=== PATIENT | female | born 1990 | race Caucasian/White ===

== ENCOUNTER 2016-10-20 03:35 | Emergency (ER) | payer OTHER ==
[~2016-10-20] VITALS: Ht 162.6 cm; Wt 53.5 kg
[~2016-10-20 03:35] MED LIST: ATIVAN1 MG PO; NORCO 325 MG-51 TAB PO; PRENATAL1 TA1 PO; PROAIR HFA0.09 MG/Ac IH; XANAX1 MG PO; [UNRECOGNIZED DRUG - REMARK]
[2016-10-20 03:46] VITALS: BP 122/73
--- NOTE | 2016-10-20 03:51 | NUR ---
TO ER BED 2
--- NOTE | 2016-10-20 03:55 | NUR ---
COUGHING X 5 DAYS, DENIES N/V/D/. PT STATES SHE THREW UP YELLOW PHELGM. PT ALSO STATES HER CHEST HURTS DUE TO COUGH 02/20 HX: ASTHMA, NKA
--- NOTE | 2016-10-20 04:06 | NUR ---
Patient being evaluated by physician at bedside.
[2016-10-20] MEDS ORDERED: ACETAMINOPHEN EXTRA STRENGTH 500 MG TAB PO ONE (04:10)
[2016-10-20 04:41] VITALS: BP 120/74
--- NOTE | 2016-10-20 04:42 | NUR ---
Patient discharged with v/s stable. Written and verbal after care instructions given and explained. Patient alert, oriented and verbalized understanding of instructions. Ambulatory with steady gait. All questions addressed prior to discharge. ID band removed. Patient advised to follow up with PMD. Rx of MOTRIN 800MG, AMOX 500MG, PHENERGAN DM given. Patient educated on indication of medication including possible reaction and side effects. Opportunity to ask questions provided and answered.
== END 2016-10-20 04:41 | disposition home or self-care (01) ==
LOC: MED 03:35
DX: J20.9 Acute bronchitis, unspecified (principal); J45.909 Unspecified asthma, uncomplicated; R03.0 Elevated blood-pressure reading, without diagnosis of hypertension

== ENCOUNTER 2016-10-22 05:42 | Emergency (ER) | payer OTHER ==
--- NOTE | 2016-10-22 05:45 | NUR ---
PATIENT LEFT WITHOUT BEING SEEN BY DR. ENGLAND. NO FURTHER CARE PROVIDED FOR PATIENT.
== END 2016-10-22 05:45 | disposition left against medical advice (07) ==
LOC: MED 05:42
DX: R51 Headache (principal); Z53.21 Procedure and treatment not carried out due to patient leaving prior to being seen by health care provider

== ENCOUNTER 2018-01-24 23:54 | Emergency (ER) | payer OTHER ==
[~2018-01-24] VITALS: Ht 154.9 cm; Wt 54.0 kg
[~2018-01-24 23:54] MED LIST changes: +ALBU-136 IH; -ATIVAN1 MG PO; +LORA-476 PO; -NORCO 325 MG-51 TAB PO; -PRENATAL1 TA1 PO; -PROAIR HFA0.09 MG/Ac IH; -XANAX1 MG PO; -[UNRECOGNIZED DRUG - REMARK]
[2018-01-24 23:55] VITALS: BP 110/62
[2018-01-25] VITALS: BP 110/62
== END 2018-01-25 00:26 | disposition left against medical advice (07) ==
LOC: MED 23:54
DX: R07.9 Chest pain, unspecified (principal); R42 Dizziness and giddiness; Z53.21 Procedure and treatment not carried out due to patient leaving prior to being seen by health care provider
CPT/HCPCS: 93005; 99281; 99283

== ENCOUNTER 2018-05-03 00:33 | Emergency (ER) | payer SELFPAY ==
--- NOTE | 2018-05-03 00:40 | NUR ---
PATIENT CALLED TO [facility] NO RESPONSE PATIENT LEFT WITHOUT BEING SEEN BY DR. CRUZ. NO FURTHER CARE PROVIDED FOR PATIENT.
== END 2018-05-03 00:40 | disposition left against medical advice (07) ==
LOC: MED 00:33
DX: Z53.21 Procedure and treatment not carried out due to patient leaving prior to being seen by health care provider (principal)

== ENCOUNTER 2018-05-04 04:40 | Emergency (ER) | payer OTHER ==
[~2018-05-04] VITALS: Ht 152.4 cm; Wt 49.6 kg
[2018-05-04 04:51] VITALS: BP 111/68
--- NOTE | 2018-05-04 04:51 | NUR ---
TO BED #9 [facility], REPORT GIVEN TO HERB RASHEED.
--- NOTE | 2018-05-04 04:59 | NUR ---
PATIENT IS A 27 Y/O FEMALE WHO PRESENTS TO THE ED C/O HEADACHE. PT STATES THAT IT HAS BEEN GOING ON X6 DAYS. PT REPORTS 6/10 ACHING HEADACHE PAIN THAT DOES NOT RADIATE. PT DENIES CP, SOB, N/V/D. PT AWAKE AND ALERT, RR EVEN/UNLABORED. PT REPOSITIONED FOR COMFORT, BED IN LOWEST POSITION. ER MD DR. AGUIRRE NOTIFIED. WILL CONTINUE TO MONITOR.
[2018-05-04] MEDS ORDERED: KETOROLAC 60 MG/2 ML VIAL IM ONE ×2 (05:05→05:11)
[2018-05-04 05:39] VITALS: BP 118/72
--- NOTE | 2018-05-04 05:39 | NUR ---
Patient discharged with v/s stable. Written and verbal after care instructions given and explained. Patient alert, oriented and verbalized understanding of instructions. Ambulatory with steady gait. All questions addressed prior to discharge. ID band removed. Patient advised to follow up with PMD. Rx of MOTRIN 600MG given. Patient educated on indication of medication including possible reaction and side effects. Opportunity to ask questions provided and answered.
== END 2018-05-04 05:39 | disposition home or self-care (01) ==
LOC: MED 04:40
DX: R51 Headache (principal); M54.2 Cervicalgia; J45.909 Unspecified asthma, uncomplicated; F12.10 Cannabis abuse, uncomplicated; Z79.899 Other long term (current) drug therapy; Z90.49 Acquired absence of other specified parts of digestive tract
CPT/HCPCS: 81002; 81025; 96372; 99283; J1885

== ENCOUNTER 2018-12-25 15:48 | Observation (INO) | payer OTHER ==
[~2018-12-25] VITALS: Ht 160 cm; Wt 64.4 kg
[2018-12-25 15:50] VITALS: BP 111/69
--- NOTE | 2018-12-25 15:55 | NUR ---
PT TO L&D WITH RN VIA WHEELCHAIR PER DR. JUSTICE.
[2018-12-25] MEDS ORDERED: TERBUTALINE 1 MG/ML VIAL SUBQ SCH (17:05)
[2018-12-25] MEDS ORDERED: PREN-380 PO (17:14)
[2018-12-25 17:15] VITALS: BP 111/69
[2018-12-25] MEDS ORDERED: TERBUTALINE 1 MG/ML VIAL SUBQ ONE (17:49)
== END 2018-12-25 19:10 | disposition home or self-care (01) ==
LOC: MED 15:48 → MLD 15:55 → UNDOADMOB 16:41
PROVIDERS: ADMIT Obstetrics & Gynecology; ATTEND Obstetrics & Gynecology
DX: O26.893 Other specified pregnancy related conditions, third trimester (principal); R10.30 Lower abdominal pain, unspecified; R06.02 Shortness of breath; Z3A.33 33 weeks gestation of pregnancy
CPT/HCPCS: 81000; 96372; 99281; G0378; J3105

== ENCOUNTER 2019-01-02 19:14 | Observation (INO) | payer OTHER ==
[~2019-01-02] VITALS: Ht 152.4 cm; Wt 65.8 kg
[~2019-01-02 19:14] MED LIST changes: +PREN-380 PO
[2019-01-02 19:27] VITALS: BP 110/64
--- NOTE | 2019-01-02 19:34 | NUR ---
PT TRIAGED IN ER AND TAKEN TO L&D
[2019-01-02] MEDS ORDERED: TERBUTALINE 1 MG/ML VIAL SUBQ SCH (20:15)
[2019-01-02] MEDS ORDERED: TERBUTALINE 1 MG/ML VIAL SUBQ ONE (20:50)
[2019-01-02 21:19] VITALS: BP 110/57
== END 2019-01-02 21:40 | disposition home or self-care (01) ==
LOC: MED 19:14 → MLD 19:34
PROVIDERS: ADMIT Obstetrics & Gynecology; ATTEND Obstetrics & Gynecology
DX: O26.893 Other specified pregnancy related conditions, third trimester (principal); R10.2 Pelvic and perineal pain; O99.89 Other specified diseases and conditions complicating pregnancy, childbirth and the puerperium; M54.5 Low back pain; Z3A.34 34 weeks gestation of pregnancy
CPT/HCPCS: 76805; 96372; 99281; G0378; J3105; Q0092

== ENCOUNTER 2019-11-16 15:08 | Emergency (ER) | payer MEDICAID, OTHER ==
[~2019-11-16] VITALS: Ht 154.9 cm; Wt 54.4 kg
[2019-11-16 15:08] VITALS: BP 116/59
[~2019-11-16 15:08] MED LIST changes: -ALBU-136 IH; -LORA-476 PO
[2019-11-16 15:34] VITALS: BP 116/59
== END 2019-11-16 15:33 | disposition home or self-care (01) ==
LOC: MED 15:08 → EEVIPCON 15:08 → MED 15:33
DX: J45.909 Unspecified asthma, uncomplicated (principal); Z79.899 Other long term (current) drug therapy
CPT/HCPCS: 99281

== ENCOUNTER 2020-02-11 07:21 | Emergency (ER) | payer MEDICAID, OTHER ==
[~2020-02-11] VITALS: Ht 154.9 cm; Wt 53.5 kg
[2020-02-11 07:29] VITALS: BP 146/100
--- NOTE | 2020-02-11 07:41 | NUR ---
29 Y/O F C/C DRUG INGESTION AT 0300 HOURS. PER PT TOOK ONE PILL ECSTASY, DOES NOT RECALL THE AMOUNT SHE TOOK AND DOES NOT RECALL THE SOURCE. PT PRESENTS ANXIOUS, AND COOL TO THE TOUCH. NO RESPIRATORY DISTRESS, PT TACHYCARDIC, AMBULATORY, A/OX4. PT NKA. HX ASTHMA. NO RX. NO V/D. SIDE RAIL X1.
--- NOTE | 2020-02-11 07:47 | NUR ---
Dr. Miller is evaluating the patient at bedside.
[2020-02-11] MEDS ORDERED: LORazepam 2 MG/ML VIAL IVP ONE (07:50)
[2020-02-11] MEDS ORDERED: ONDANSETRON 4 MG/2 ML VIAL IVP ONE (07:50)
[2020-02-11] MEDS ORDERED: NACL 0.9% 1,000 ML IV ONE (07:50)
[2020-02-11 09:08] LABS: BARBITURATE, URINE NEGATIVE ng/ml (NEG <=200); BENZODIAZEPINE, URINE NEGATIVE ng/mL (NEG <=200); CANNABINOID, URINE NEGATIVE ng/mL (NEG <=50); COCAINE, URINE POSITIVE ng/mL (NEG <=300)
[2020-02-11 09:09] LABS: OPIATE, URINE NEGATIVE ng/mL (NEG <=2000); PHENCYCLIDINE SCREEN,URINE NEGATIVE ng/mL (NEG <=25)
--- NOTE | 2020-02-11 09:18 | NUR ---
PT RESTING IN BED, SIDE RAIL X1
[2020-02-11 09:57] VITALS: BP 130/78
--- NOTE | 2020-02-11 09:57 | NUR ---
Patient discharged with v/s stable. Written and verbal after care instructions given and explained. Patient verbalized understanding. Ambulatory with steady gait. All questions addressed prior to discharge. Advised to follow up with PMD.
== END 2020-02-11 09:57 | disposition home or self-care (01) ==
LOC: MED 07:21
DX: F19.10 Other psychoactive substance abuse, uncomplicated (principal); J45.909 Unspecified asthma, uncomplicated; Z79.899 Other long term (current) drug therapy; Z98.890 Other specified postprocedural states
CPT/HCPCS: 80305; 81002; 81025; 96374; 96375; 99285; J2060; J2405; J7030; 99284

== ENCOUNTER 2020-06-24 19:12 | Emergency (ER) | payer MEDICAID, OTHER ==
[~2020-06-24] VITALS: Ht 154.9 cm; Wt 57.2 kg
[2020-06-24 19:18] VITALS: BP 128/68
[2020-06-24 21:30] VITALS: BP 128/68
== END 2020-06-24 21:30 | disposition home or self-care (01) ==
LOC: MED 19:12
DX: R42 Dizziness and giddiness (principal); J45.909 Unspecified asthma, uncomplicated; Z98.890 Other specified postprocedural states; Z79.899 Other long term (current) drug therapy
CPT/HCPCS: 81002; 81025; 93005; 99283

== ENCOUNTER 2021-01-02 06:12 | Emergency (ER) | payer OTHER ==
[~2021-01-02] VITALS: Ht 157.5 cm; Wt 68.5 kg
[2021-01-02 06:16] VITALS: BP 127/74
--- NOTE | 2021-01-02 06:20 | NUR ---
EDDIE 30 Y/O FEMALE BIB SELF FOR C/O L SIDED CHEST PAIN 7/10 S/P TAKING COCAINE AND 3 "SLEEPING PILLS." PATIENT STATESS, "I HAVEN'T HAD THIS TYPE OF PAIN BEFORE." PATIENT STATES PAIN IS SHARP AND STABBING, DENIES IT RADIATING TO ANY OTHER LOCATION. S1S2 HEARD. PATIENT HAD X 1 EPISODE OF N/V. PATIENT RADIAL PULSES STRONG AND EQUAL BILATERALLY. PATIENT SKIN WARM AND DRY TO TOUCH. DENIES SOB. MEDHX: ASTHMA NKA
[2021-01-02] MEDS: PANTOPRAZOLE 40 MG TABEC PO ONE (06:35)
[2021-01-02 06:37] VITALS: BP 127/74
[2021-01-02] MEDS: IBUPROFEN 400 MG TAB PO ONE (06:37)
--- NOTE | 2021-01-02 06:37 | NUR ---
PATIENT ELOPED FROM FACILITY. DISCHARGE INSTRUCTIONS NOT GIVEN TO PATIENT. DR. JEAN NOTIFIED.
== END 2021-01-02 06:37 | disposition left against medical advice (07) ==
LOC: MED 06:12
DX: R07.89 Other chest pain (principal)
CPT/HCPCS: 93005; 99283

== ENCOUNTER 2021-06-26 20:48 | Emergency (ER) | payer OTHER ==
[~2021-06-26] VITALS: Ht 154.9 cm; Wt 68.0 kg
[2021-06-26 21:06] VITALS: BP 101/72
--- NOTE | 2021-06-26 21:38 | NUR ---
ERMD at bedside for examination, and asked patient to change into a gown to exam the buttocks
--- NOTE | 2021-06-26 21:42 | NUR ---
Female [employer]r accompanied female patient for examination of the buttocks.
--- NOTE | 2021-06-26 21:44 | NUR ---
patient ambulated to the bathroom for urine collection
[2021-06-26] MEDS ORDERED: LEVOFLOXACIN 500 MG/D5W PREMIX 100 ML IV ONE (21:45)
[2021-06-26] MEDS ORDERED: NACL 0.9% 2,000 ML IV ONE (21:45)
--- NOTE | 2021-06-26 21:53 | NUR ---
xr at bedside
--- NOTE | 2021-06-26 22:01 | NUR ---
unhooked patient off monitors and fluids. patient ambulated to the bathroom.
--- NOTE | 2021-06-26 22:04 | NUR ---
hooked patient back on the monitor and fluids. safety measures are in place, and will continue to monitor patient
[2021-06-26] MEDS ORDERED: cefTRIAXone 1,000 MG VIAL ONE (22:17)
[2021-06-26 22:22] LABS: BASOPHILS % (AUTO) 0.2 % (0.0-2.0); EOSINOPHILS % (AUTO) 0.2 % (0.0-4.0); HEMATOCRIT 28.7 % (36-48); HEMOGLOBIN 9.3 g/dL (12.0-16.0); LYMPHOCYTES # (AUTO) 0.5 K/uL (2.5-16.5); LYMPHOCYTES % (AUTO) 4.1 % (20.5-51.1); MEAN CORPUSCULAR HEMOGLOBIN 27 pg (27-31); MEAN CORPUSCULAR HGB CONC 33 g/dL (33-37); MEAN CORPUSCULAR VOLUME 83.7 fL (80-94); MONOCYTES # (AUTO) 0.3 K/uL (0.8-1.0); MONOCYTES % (AUTO) 2.7 % (1.7-9.3); NEUTROPHILS # (AUTO) 10.8 K/uL (1.8-7.7); PLATELET COUNT (AUTO) 516 K/uL (140-450); RED BLOOD CELL COUNT(AUTO) 3.43 MIL/uL (4.20-5.40); RED CELL DISTRIBUTION WIDTH 14.1 % (11.6-13.7); WHITE BLOOD COUNT (AUTO) 11.7 K/uL (4.8-10.8)
[2021-06-26 22:39] LABS: CARBON DIOXIDE 25.8 mmol/L (21-32); CREATININE 0.9 mg/dL (0.6-1.3); POTASSIUM 3.8 mmol/L (3.5-5.1); TOTAL BILIRUBIN 0.2 mg/dL (0.0-1.0)
[2021-06-26 22:45] LABS: NEUTROPHILS % (AUTO) 92.8 % (42.2-75.2)
--- NOTE | 2021-06-26 22:57 | NUR ---
unhooked patient off monitors and fluids. patient ambulated to the bathroom.
--- NOTE | 2021-06-26 23:36 | NUR ---
unhooked patient off monitors and fluids. patient ambulated to the bathroom.
[2021-06-26] MEDS ORDERED: KETOROLAC 30 MG/ML VIAL IVP ONE (23:50)
--- NOTE | 2021-06-27 00:29 | NUR ---
patient feels hungry and asked ERMD if okay to give food and was given an okay. patient given crackers and juice. no vomiting or nausea noted.
[2021-06-27] MEDS ORDERED: NAPR-54 PO (01:14)
[2021-06-27] MEDS ORDERED: CEPH-588 PO (01:14)
--- NOTE | 2021-06-27 01:15 | NUR ---
IV removed, catheter intact and site benign. Applied folded 4x4 gauze and tape to stop bleeding.
--- NOTE | 2021-06-27 01:22 | NUR ---
Patient discharged with v/s stable. Written and verbal after care instructions given and explained. Patient alert, oriented and verbalized understanding of instructions. Ambulatory with steady gait. All questions addressed prior to discharge. ID band removed. Patient advised to follow up with PMD. Rx of Keflex and Naproxen given. Patient educated on indication of medication including possible reaction and side effects. Opportunity to ask questions provided and answered.
[2021-06-27 01:29] VITALS: BP 115/62
== END 2021-06-27 01:22 | disposition home or self-care (01) ==
LOC: MED 20:48
DX: L03.317 Cellulitis of buttock (principal); Z20.822 Contact with and (suspected) exposure to COVID-19; J45.909 Unspecified asthma, uncomplicated; Z79.899 Other long term (current) drug therapy
CPT/HCPCS: 36415; 71045; 80053; 83605; 85025; 87040; 87426; 96365; 96367; 96375; 99284; J0696; J1885; J1956; J7030; Q0092

== ENCOUNTER 2021-10-07 20:34 | Emergency (ER) | payer OTHER ==
[~2021-10-07 20:34] MED LIST changes: +CEPH-588 PO; +NAPR-54 PO
--- NOTE | 2021-10-07 20:47 | NUR ---
CALLED PT IN TENT AND OUTSIDE, NO ANSWER.
--- NOTE | 2021-10-07 20:48 | NUR ---
CALLED PT TO NUMBER ON FILE; SENT TO VOICEMAIL.
--- NOTE | 2021-10-07 20:59 | NUR ---
CALLED PT IN TENT AND OUTSIDE, NO ANSWER.
--- NOTE | 2021-10-07 21:27 | NUR ---
CALLED PT IN TENT AND OUTSIDE, NO ANSWER.
== END 2021-10-07 20:47 | disposition left against medical advice (07) ==
LOC: MED 20:34
DX: J45.909 Unspecified asthma, uncomplicated (principal); Z53.21 Procedure and treatment not carried out due to patient leaving prior to being seen by health care provider

== ENCOUNTER 2023-12-11 12:32 | Emergency (ER) | payer OTHER, MEDICAID ==
[~2023-12-11] VITALS: Ht 154.9 cm; Wt 69.1 kg
[~2023-12-11 12:32] MED LIST changes: +NAPR-337 PO; -NAPR-54 PO
[2023-12-11 12:48] VITALS: BP 107/65; PULSE 73; RESP 18; TEMP 98.1; O2SAT 97
[2023-12-11] MEDS: KETOROLAC 30 MG/ML VIAL IM ONE (13:30)
[2023-12-11 14:38] LABS: BASOPHILS % (AUTO) 0.5 % (0.0-2.0); EOSINOPHILS # (AUTO) 0.2 K/uL (0-0.4); HEMATOCRIT 41.1 % (36-48); HEMOGLOBIN 14.2 g/dL (12.0-16.0); LYMPHOCYTES # (AUTO) 1.9 K/uL (2.5-16.5); LYMPHOCYTES % (AUTO) 33.6 % (20.5-51.1); MEAN CORPUSCULAR HEMOGLOBIN 30 pg (27-31); MEAN CORPUSCULAR HGB CONC 34 g/dL (33-37); MEAN CORPUSCULAR VOLUME 87.2 fL (80-94); MONOCYTES # (AUTO) 0.4 K/uL (0.8-1.0); MONOCYTES % (AUTO) 6.8 % (1.7-9.3); NEUTROPHILS # (AUTO) 3.2 K/uL (1.8-7.7); NEUTROPHILS % (AUTO) 56.1 % (42.2-75.2); PLATELET COUNT (AUTO) 208 K/uL (140-450); RED BLOOD CELL COUNT(AUTO) 4.72 MIL/uL (4.20-5.40); WHITE BLOOD COUNT (AUTO) 5.7 K/uL (4.8-10.8)
[2023-12-11 15:07] LABS: CALCIUM 8.3 mg/dL (8.5-10.1); CARBON DIOXIDE 29.7 mmol/L (21-32); CREATININE 0.7 mg/dL (0.6-1.3); POTASSIUM 3.7 mmol/L (3.5-5.1)
[2023-12-11 15:40] VITALS: BP 110/64; PULSE 72; RESP 16; TEMP 98.1; O2SAT 98
== END 2023-12-11 15:48 | disposition home or self-care (01) ==
LOC: MED 12:32
DX: R07.89 Other chest pain (principal); M26.609 Unspecified temporomandibular joint disorder, unspecified side; J45.909 Unspecified asthma, uncomplicated; Z79.1 Long term (current) use of non-steroidal anti-inflammatories (NSAID); Z79.899 Other long term (current) drug therapy
CPT/HCPCS: 36415; 70110; 71045; 80048; 81025; 84484; 85025; 93005; 96372; 99285; J1885

== ENCOUNTER 2024-02-05 18:08 | Emergency (ER) | payer MEDICAID, OTHER ==
[~2024-02-05] VITALS: Ht 154.9 cm; Wt 70.3 kg
[2024-02-05 18:16] VITALS: BP 103/47; PULSE 82; RESP 16; TEMP 98.1; O2SAT 97
== END 2024-02-05 19:20 | disposition left against medical advice (07) ==
LOC: MED 18:08
DX: R51.9 Headache, unspecified (principal); Z53.20 Procedure and treatment not carried out because of patient's decision for unspecified reasons

== ENCOUNTER 2024-02-06 20:28 | Emergency (ER) | payer OTHER ==
[~2024-02-06] VITALS: Ht 157.5 cm; Wt 54.4 kg
[2024-02-06 20:45] VITALS: BP 113/63; PULSE 77; RESP 14; TEMP 98.1; O2SAT 98
[2024-02-06 22:44] VITALS: BP 121/68; PULSE 72; RESP 16; TEMP 98.3; O2SAT 98
== END 2024-02-07 02:15 | disposition left against medical advice (07) ==
LOC: MED 20:28
DX: R07.9 Chest pain, unspecified (principal); Z53.21 Procedure and treatment not carried out due to patient leaving prior to being seen by health care provider
CPT/HCPCS: 93005

== ENCOUNTER 2024-04-13 18:47 | Emergency (ER) | payer OTHER ==
[~2024-04-13] VITALS: Ht 154.9 cm; Wt 70.0 kg
[2024-04-13 18:55] VITALS: BP 113/68; PULSE 78; RESP 18; TEMP 98.6; O2SAT 98
--- NOTE | 2024-04-13 19:02 | NUR ---
TO ER BED 11
[2024-04-13] MEDS ORDERED: ACETAMINOPHEN 325 MG TAB PO ONE (19:15)
--- NOTE | 2024-04-13 19:30 | NUR ---
Patient does not wish to proceed with medical care recommended by David Zhang. Patient given information related to possible complications, up to and including , which could occur as a result of leaving hospital at this time. Patient verbalizes understanding of risks involved leaving against medical advice. Patient has signed AMA form.
--- NOTE | 2024-04-13 19:30 | NUR ---
Left AMA, without aftercare paperwork, did not want to wait.
== END 2024-04-13 19:30 | disposition left against medical advice (07) ==
LOC: MED 18:47
DX: R07.89 Other chest pain (principal); R06.02 Shortness of breath; R11.2 Nausea with vomiting, unspecified; H11.31 Conjunctival hemorrhage, right eye; J45.909 Unspecified asthma, uncomplicated; Z79.899 Other long term (current) drug therapy
CPT/HCPCS: 93005; 99283

== ENCOUNTER 2024-05-14 15:03 | Emergency (ER) | payer OTHER ==
[~2024-05-14] VITALS: Ht 154.9 cm; Wt 68.0 kg
[2024-05-14 15:33] VITALS: BP 99/57; PULSE 77; RESP 20; TEMP 98.3
[2024-05-14] MEDS: METOCLOPRAMIDE 10 MG/2 ML INJ VIAL IVP ONE (17:00)
[2024-05-14] MEDS: KETOROLAC 30 MG/ML VIAL IVP ONE (17:00)
[2024-05-14] MEDS: NACL 0.9% 1,000 ML IV ONE (17:01)
[2024-05-14 17:30] LABS: BASOPHILS % (AUTO) 0.4 % (0.0-2.0); EOSINOPHILS # (AUTO) 0.1 K/uL (0-0.4); EOSINOPHILS % (AUTO) 1.7 % (0.0-4.0); HEMATOCRIT 37.2 % (36-48); HEMOGLOBIN 12.6 g/dL (12.0-16.0); LYMPHOCYTES # (AUTO) 1.9 K/uL (2.5-16.5); LYMPHOCYTES % (AUTO) 23.5 % (20.5-51.1); MEAN CORPUSCULAR HEMOGLOBIN 30 pg (27-31); MEAN CORPUSCULAR HGB CONC 34 g/dL (33-37); MEAN CORPUSCULAR VOLUME 89.7 fL (80-94); MONOCYTES # (AUTO) 0.5 K/uL (0.8-1.0); MONOCYTES % (AUTO) 6.1 % (1.7-9.3); NEUTROPHILS # (AUTO) 5.5 K/uL (1.8-7.7); NEUTROPHILS % (AUTO) 68.3 % (42.2-75.2); PLATELET COUNT (AUTO) 197 K/uL (140-450); RED BLOOD CELL COUNT(AUTO) 4.15 MIL/uL (4.20-5.40); RED CELL DISTRIBUTION WIDTH 11.9 % (11.6-13.7); WHITE BLOOD COUNT (AUTO) 8.1 K/uL (4.8-10.8)
[2024-05-14] MEDS ORDERED: ONDA-188 PO (17:34)
[2024-05-14 17:42] LABS: ANION GAP 10.6 (8-16); CALCIUM 9.1 mg/dL (8.5-10.1); CARBON DIOXIDE 28.9 mmol/L (21-32); CREATININE 0.7 mg/dL (0.6-1.3); POTASSIUM 3.5 mmol/L (3.5-5.1)
== END 2024-05-14 18:05 | disposition home or self-care (01) ==
LOC: MED 15:03
DX: R51.9 Headache, unspecified (principal); R42 Dizziness and giddiness; R11.10 Vomiting, unspecified; J45.909 Unspecified asthma, uncomplicated; Z79.899 Other long term (current) drug therapy
CPT/HCPCS: 36415; 70450; 74176; 80048; 81025; 85025; 96361; 96374; 96375; 99285; J1885; J2765; J7030